=== PATIENT | female | born 1950 | race Caucasian/White ===

== ENCOUNTER → 2020-04-15 15:42 | Outpatient (CLI) | payer OTHER, SELFPAY ==
--- NOTE | ~2020-04-15 | XR_ITS ---
EXAMINATION: XR knee LT 3V DATE: 04/15/2020 16:10 INDICATION: Left knee pain. TECHNIQUE: 3 views of left knee were obtained. COMPARISON: None. FINDINGS: There is varus angulation at the knee. No fracture. There is moderate osteoarthritis of med ial compartment and mild osteoarthritis of lateral and patellofemoral compartments. No knee joint eff usion. IMPRESSION: 1. Moderate left knee osteoarthritis. Reviewed, dictated and finalized at location A.
== END ==
PROVIDERS: PCP Family Medicine; Visit Provider Family Medicine
DX: M25.562 Pain in left knee (principal); M17.12 Unilateral primary osteoarthritis, left knee
CPT/HCPCS: 73562

== ENCOUNTER 2020-06-05 11:00 | Outpatient (RCR) | payer OTHER, SELFPAY ==
--- NOTE | 2020-04-29 09:52 | PTOPEVAL ---
INITIAL PHYSICAL THERAPY EVALUATION and PLAN OF CARE Thank you for referring Yennifer Marcus to [facility].? Yennifer is scheduled to be seen for physical therapy? 2x/week for 3 weeks. Please review, sign, date and return this plan of care MARANDA. I agree with and certify that the following plan of care is medically necessary. Referring Physician Date Admitting Provider: Attending Provider: Farida Knight DO Referring Provider: *PT Outpatient Evaluation Start: 04/29/20 08:24 Freq: Status: Active Protocol: Document 04/29/20 08:24 ANGELINA (Rec: 04/29/20 09:51 ANGELINA [email or web address]) Therapy Assessment Status Assessment Status Assessment Status Evaluation Outpatient Past Medical History Past Medical History Source of Past Medical History Patient Neurological History Hx Neurological Disorders No Significant History Cardiovascular History Hx Cardiac Disorders No Significant History Respiratory History Hx Asthma Yes Hx Chronic Obstructive Pulmonary Disease Yes (COPD) Hx Emphysema Yes Hx Other Respiratory Disorders Yes: allergies Gastrointestinal History Hx Irritable Bowel Yes Genitourinary History Hx Genitourinary Disorders No Significant History Musculoskeletal History Hx Other Musculoskeletal Disorders Yes: R knee pain, L knee pain, L cervical radiculopathy Endocrine History Hx Endocrine Disorders No Significant History HEENT History Hx Cataracts Yes Hx Glaucoma Yes Hx Ear Surgery Yes: replaced stapes R ear Hx Other HEENT Disorders Yes: vertigo Evaluation Information Problem Diagnosis L knee pain Onset couple of months Subjective Information Yennifer reports having off/on L Query Text:As Reported By Patient/ knee pain that rest and Family ibuprofen took care of in the past. Then pain began to worsen. Did try Voltaren cream which really helped her pain. Did go off of the Voltaren cream and her pain came back. In past when she had lost 10 lbs and was walking ~ 1 mile - L knee felt better. Will take ibuprofen to help with sleeping - to try arthritis strength Tylenol. Worse first thing in the morning - better with warmer temperatures. Difficulty with L knee straightening in the
--- NOTE | 2020-05-15 12:50 | PCPTNOTE ---
Patient called & cancelled scheduled appointment this date due to illness.
--- NOTE | 2020-06-05 11:54 | PTOPEVAL ---
PHYSICAL THERAPY DISCHARGE SUMMARY Thank you for referring Yennifer Marcus to [facility].? Yennifer has been seen x 6 visits. Goals were met except for WOMAC pain score. Her HEP was reviewed this date and she was encouraged to continue with it on a regular basis. She stated that since her illness she hasn't been as faithful with her HEP and hasn't been doing as well as she was when she was regularly performing HEP. She is ready for discharge from PT to [facility]. I agree with and certify that the following plan of care is medically necessary. Referring Physician Date Admitting Provider: Attending Provider: Farida Knight DO Referring Provider: *PT Outpatient Evaluation Start: 04/29/20 08:24 Freq: Status: Active Protocol: Document 06/05/20 11:13 ANEGLINA (Rec: 06/05/20 11:54 ANGELINA [email or web address]) Therapy Assessment Status Assessment Status Assessment Status Discharge Evaluation Information Problem Subjective Information Yennifer states that after Query Text:As Reported By Patient/ becoming ill and getting busy Family with grandchildren - she hasn' t been doing her exercises like was doing before. Still doing pretty good with mobility - but not as good as before. Pain Assessment Timing of Pain Assessment Timing of Pain Assessment Assessment Pain Scale Pain Scale Used Numeric (1 - 10) Self Report Pain Assessment Left Knee(s) Reported Pain Level 0 Lowest Pain Intensity 0 Greatest Pain Intensity 3 Pain Score Pain Score 0: Self Report Lower Extremity Range of Motion Knee Range of Motion Left Knee Flexion Range of Motion - Active 125 Knee Extension Range of Motion - Active 0 Query Text: Lower Extremity Muscle Strength Testing Hip Strength Left Hip Flexion Strength 5 Normal Hip Extension Strength 5 Normal Hip Abduction Strength 4+ Good + Hip Medial Rotation Strength 5 Normal Hip Lateral Rotation Strength 5 Normal Gait Assessment Gait Pattern Assessment Other Gait Observations no obvious gait deviations observed Stair Climbing Assessment Stair Climbing Assessment Stair Climbing Assistive Devices Railings Number of Steps Climbed (Steps) 4 Number of Repetitions (Repetitions) 1 Technique Alternating Steps Stair Climbing Direction Both Up and Down Stair Climbing Comments no deviations observed PT Clinical Summary Clinical Summary Protocol: PTEVCODE PT Clinical Summary WOMAC - pain score - 50% physical function score - 29% total score - 36% Vera returned for re-eval th
== END 2020-06-22 15:14 | disposition home or self-care (01) ==
LOC: ANHHIPT 11:00
PROVIDERS: PCP Family Medicine; Visit Provider Family Medicine
DX: M25.562 Pain in left knee (principal)
CPT/HCPCS: 97110; 97161

== ENCOUNTER → 2021-06-07 12:10 | Outpatient (CLI) | payer OTHER, SELFPAY ==
--- NOTE | ~2021-06-07 | DEXA_ITS ---
Bone Density Report Name: ITA BEASLEY Age: 70 Sex: Female Ethnicity: White Date of : 1950 Indication: postmenopausal; screening for osteoporosis; height loss; asthma or emphysema; Referring Provider: Farida Knight Study: Bone densitometry was performed. Exam Date: June 07, 2021 Accession number: [id number] Bone Density: Region BMD T-score Z-score Classification AP Spine (L1-L4) 1.080 0.3 2.4 Normal Femoral Neck (Left) 0.727 -1.1 0.7 Osteopenia Total Hip (Left) 1.135 1.6 3.1 Normal Femoral Neck (Right) 0.732 -1.1 0.7 Osteopenia Total Hip (Right) 1.108 1.4 2.8 Normal Total Hip Mean 1.122 1.5 3.0 Normal World Health Organization criteria for BMD impression classify patients as: Normal (T-score at or above -1.0), Osteopenia (T-score between -1.0 and -2.5), or Osteoporosis (T-score at or below -2.5). 10-year Fracture Risk(1): Major Osteoporotic Fracture 8.1% Hip Fracture 0.8% Reported Risk Factors: [place] (), Neck BMD=0.732, BMI=37.4 (1) FRAX(R) Version 3.08. Fracture probability calculated for an untreated patient. Fracture probability may be lower if the patient has received treatment. Previous Exams: Region Exam Age BMD T-score BMD Change BMD Change Date g/cm2 vs Baseline vs Previous AP Spine(L1-L4) 06/07/2021 70 1.080 0.3 -0.019 0.011 09/09/2017 67 1.070 0.2 -0.029* 0.013 01/19/2007 56 1.056 0.1 -0.043* -0.043* 04/04/2005 54 1.099 0.5 Total Hip(Left) 06/07/2021 70 1.135 1.6 -0.058* -0.015 09/09/2017 67 1.151 1.7 -0.043* 0.116* 01/19/2007 56 1.035 0.8 -0.159* -0.159* 04/04/2005 54 1.193 2.1 Total Hip(Right) 06/07/2021 70 1.108 1.4 -0.070* -0.022 09/09/2017 67 1.129 1.5 -0.048* 0.040* 01/19/2007 56 1.089 1.2 -0.088* -0.088* 04/04/2005 54 1.177 1.9 *Denotes significance at 95% confidence level, LSC for AP Spine = 0.022 g/cm2, LSC for Total Hip = 0.027 g/cm2 Clinical Information Provided by Patient: Has used the following medications: Vitamin D Has the following medical conditions: Asthma or Emphysema Patient maximum height was 65.5 Menopause Age: 53 Drinks caffeinated beverages Onset of menses at age 15 Number of children 2 Impression: The patient has low bone mass, base
--- NOTE | ~2021-06-07 | MM_ITS ---
EXAMINATION: MM screening [facility] BI w melvin HISTORY: Screening mammogram TECHNIQUE: Craniocaudal and mediolateral oblique 3-D tomosynthesis images were obtained and synthetic 2-D images were generated. CAD analysis was submitted and interpreted. COMPARISON: 02/07/2019, 09/09/2017 BREAST PARENCHYMAL COMPOSITION: There are scattered areas of fibroglandular density. FINDINGS: There is no evidence of suspicious mass, calcification, or architectural distortion to sugg est malignancy in either breast. There has been no suspicious interval change. IMPRESSION: 1. No mammographic evidence of malignancy. 2. Recommend routine screening mammography in one year. BI-RADS Category 1: Negative Reviewed, dictated and finalized at location A. 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
== END ==
PROVIDERS: PCP Family Medicine; Visit Provider Family Medicine
DX: Z12.31 Encounter for screening mammogram for malignant neoplasm of breast (principal); Z78.0 Asymptomatic menopausal state; M85.852 Other specified disorders of bone density and structure, left thigh; M85.851 Other specified disorders of bone density and structure, right thigh
CPT/HCPCS: 77063; 77067; 77080

== ENCOUNTER 2021-06-16 11:33 | Outpatient (CLI) | payer OTHER, SELFPAY ==
--- NOTE | ~2021-06-16 | XR_ITS ---
XR chest 2V DATE: 06/16/2021 11:54 INDICATION: Shortness of breath. Recent history of bronchitis. TECHNIQUE: PA and lateral views COMPARISON: 01/21/2019 2 view chest FINDINGS: Normal heart size. There is mild aortic unfolding. No hilar or mediastinal enlargement. The lungs are clear of infiltrate or consolidation. No pleural effusion or pulmonary vascular congestion or pneumothorax. Diffuse idiopathic skeletal hyperostosis of the thoracic spine. IMPRESSION: No active cardiac pulmonary disease Reviewed, dictated and finalized at location B. MOLDER
== END 2021-06-16 11:34 | disposition home or self-care (01) ==
PROVIDERS: PCP Family Medicine; Visit Provider Nurse Practitioner Family
DX: R06.02 Shortness of breath (principal)
CPT/HCPCS: 71046

== ENCOUNTER 2021-09-22 11:08 | Outpatient (CLI) | payer OTHER, SELFPAY ==
[2021-09-22 11:54] LABS: Immunoglobulin G 562 mg/dL (700-1600)
[2021-09-26 02:03] LABS: Immunoglobulin G, Serum 591 mg/dL (600-1540); Immunoglobulin G1 259 mg/dL (382-929); Immunoglobulin G2 249 mg/dL (241-700); Immunoglobulin G3 51 mg/dL (22-178); Immunoglobulin G4 45.7 mg/dL (4.0-86.0)
== END 2021-09-22 11:09 | disposition home or self-care (01) ==
LOC: ANHLAB 11:09
PROVIDERS: PCP Family Medicine; Visit Provider Physician Assistant
DX: D83.9 Common variable immunodeficiency, unspecified (principal); J45.909 Unspecified asthma, uncomplicated
CPT/HCPCS: 36415; 82784; 82787

== ENCOUNTER 2021-11-25 13:48 | Outpatient (CLI) | payer OTHER, SELFPAY ==
--- NOTE | ~2021-11-25 | US_ITS ---
EXAMINATION: US carotid duplex BI DATE: 11/25/2021 14:35 INDICATION: Vertigo. Carotid atherosclerosis. TECHNIQUE: Grayscale, color Doppler, and pulsed Doppler images of the cervical carotid arteries were obtained. The degree of vessel stenosis is placed in one of the following categories: normal, <50%, 5 0-69%, >=70% but less than near-occlusion, near-occlusion, or total occlusion. Note that percent sten osis relative to normal distal artery lumen diameter is indirectly measured from velocity measurement s as described by René, et al. Radiology 2003; 229:340-346. COMPARISON: None. FINDINGS: RIGHT: The right common carotid artery (CCA) peak systolic velocity (PSV) is 117 cm/s. The right internal ca rotid artery (ICA) PSV is 76 cm/s. The right ICA end-diastolic velocity (EDV) is 23 cm/s. The right I CA/CCA PSV ratio is 0.7. Grayscale and color Doppler images yield an estimate of <50% diameter reduct ion from minimal plaque in the ICA. The external carotid artery (ECA) PSV is 93 cm/s. There is antegr aura flow in the right vertebral artery. LEFT: The left CCA PSV is 105 cm/s. The left ICA PSV is 67 cm/s. The left ICA EDV is 23 cm/s. The left ICA/ CCA PSV ratio is 0.6. Grayscale and color Doppler images yield an estimate of <50% diameter reduction from minimal plaque in the ICA. The ECA PSV is 104 cm/s. There is antegrade flow in the left vertebr al artery. IMPRESSION: 1. <50% stenosis from minimal plaque in the right internal carotid artery. 2. <50% stenosis from minimal plaque in the left internal carotid artery. Reviewed, dictated and finalized at location B.
== END 2021-11-25 13:49 | disposition home or self-care (01) ==
PROVIDERS: PCP Family Medicine; Visit Provider Family Medicine
DX: R13.10 Dysphagia, unspecified (principal); R42 Dizziness and giddiness; I65.23 Occlusion and stenosis of bilateral carotid arteries
CPT/HCPCS: 93880

== ENCOUNTER 2021-12-18 09:24 | Outpatient (CLI) | payer OTHER, SELFPAY ==
--- NOTE | ~2021-12-18 | MR_ITS ---
EXAMINATION: MR brain/brain stem wo con DATE: 12/18/2021 10:11 INDICATION: Dysphagia. Dizziness. Gait disturbance. TECHNIQUE: Magnetic resonance imaging (MRI) of the brain and brainstem was performed without intraven ous contrast. Sequences included sagittal and axial T1-weighted SE, axial diffusion-weighted FS SE, a xial T2*-weighted GRE, axial 3D SWAN, axial T2-weighted FLAIR, and axial T2-weighted FSE. Apparent di ffusion coefficient (ADC) maps were created. COMPARISON: Head CT dated 01/21/2019 FINDINGS: There are no areas of restricted diffusion to suggest acute infarction. No intracranial hemorrhage or abnormal intracranial mass lesion. There are scattered areas of nonspecific increased T2-weighted si gnal intensity in the cerebral white matter, predominantly involving the deep, periventricular and po ntine white matter. There are no intraparenchymal signal abnormalities seen on the other pulse sequen dana. The ventricles are symmetric and normal in size. There are no abnormal extra-axial fluid collect ions. Flow voids are seen in the cerebral arteries on the T2-weighted sequences consistent with their expected patency. Moderate mucosal thickening throughout the paranasal sinuses. Visualized orbits an d soft tissues are unremarkable. IMPRESSION: 1. No acute intracranial process. 2. Scattered common cerebral and pontine white matter T2 hyperintensity likely related to chronic sma ll vessel ischemic disease. 3. Diffuse sinus disease. Reviewed, dictated and finalized at location A. IMPRESSION: 1. No acute intracranial process. 2. Scattered common cerebral and pontine white matter T2 hyperintensity likely related to chronic small vessel ischemic disease. 3. Diffuse sinus disease.
== END 2021-12-18 09:25 | disposition home or self-care (01) ==
PROVIDERS: PCP Family Medicine; Visit Provider Family Medicine
DX: R13.10 Dysphagia, unspecified (principal); R42 Dizziness and giddiness; J32.8 Other chronic sinusitis
CPT/HCPCS: 70551

== ENCOUNTER 2022-02-20 11:11 | Emergency (ER) | payer OTHER, SELFPAY ==
--- NOTE | 2022-02-20 11:29 | ECG_ITS ---
Measurements Intervals [place] Rate: 62 P: 21 CT: 183 QRS: -5 QRSD: 92 T: 12 QT: 420 QTc: 427 Interpretive Statements SINUS RHYTHM NONSPECIFIC T-WAVE FLATTENING COMPARED TO ECG 01/21/2019 19:11:03 NO SIGNIFICANT CHANGES Electronically Signed On 02-22-2022 20:22:11 CDT by Brandi Tom M.D.
[2022-02-20 11:32] VITALS: BP 165/79; PULSE 68; RESP 18; TEMP 35.8; O2SAT 98
--- NOTE | 2022-02-20 11:53 | ED.GENADULT ---
HPI - General Adult General Chief complaint: Arrhythmia/Palpitations Stated complaint: HEART PALPITATIONS Source: patient Mode of arrival: ambulatory Limitations: no limitations History of Present Illness HPI narrative: Patient presents for evaluation of palpitations for the last 2 to 3 days. She contradicts herself with some of her history but I gather that this occurs at least once a day, with each episode lasting about an hour. She has times where she feels like her heart skips a beat . She is also experienced some sternal chest pressure, which she is experiencing at this time. She has some chronic shortness of breath but attributes this to interstitial lung disease and COPD. She also has an underlying history of depression, alpha antitrypsin deficiency, and alcohol abuse. She indicates that she binge drinks, with her last alcohol intake approximately 2 weeks ago. Denies any tobacco use. She has intermittent leg swelling. She had an echocardiogram in November 2015 that showed normal left ventricular systolic function with no wall motion abnormalities. There was mild enlargement of the left atrium and an aneurysmal atrial septum. She had a myocardial perfusion scan in February 2017 that showed negative EKG portion of stress test. There was a small anteroseptal defect consistent with attenuation artifact. Ejection fraction was 71%. She consumes 3 to 5 cups of coffee per day. Related Data Home Medications Medication Instructions Recorded Confirmed fluticasone propionate 50 1 spray intranasal DAILY 07/03/19 02/20/22 mcg/actuation nasal spray,suspension (Flonase Allergy Relief) travoprost 0.004 % eye drops 1 drop ophthalmic (eye) QPM 07/03/19 02/20/22 (Travatan Z) fluoxetine 40 mg capsule 80 mg PO DAILY 12/17/19 02/20/22 guaifenesin 600 mg tablet, 600 mg PO .prn 12/17/19 02/20/22 extended release 12 hr (Mucinex) psyllium seed (sugar) oral powder 1 tbsp PO DAILY 12/17/19 02/20/22 (Metamucil (sugar) oral powder) trazodone 50 mg tablet 50 mg PO QHS PRN Sleep 03/12/21 02/20/22 netarsudil 0.02 % eye drops 1 drp LEFT EYE QPM 11/23/21 02/20/22 (Rhopressa) Allergies Allergy/AdvReac Type Severity Reaction Status Date / Time brimonidine Allergy Unknown ITCHING Verified 02/20/22 11:18 AND BURNING IN EYES Sulfa (Sulfonamide Allergy Unknown unk Verified 02/20/22 11:18 Antibiotics) timolol Allergy Unknown ITCHING Verified 02/20/22 11:18 AND BURNING IN EYES bupropion [From Wellbutrin] Allergy Redness of Verified 02/20/22 11:18 Skin SULFA Allergy Unknown unk Uncoded 11/23/21 09:01 Review of Systems Review of Systems: CONSTITUTIONAL: Denies fever, chills, or sweats. EYES: Denies visual changes, redness, or discharge. ENT: Denies rhinorrhea, congestion, sore throat, or otalgia. CARDIOVASCULAR: Reports sternal chest pressure and palpitations. Reports bilateral lower extremity swelling which is chronic. RESPIRATORY: Reports chronic shortness of breath, unchanged. GASTROINTESTINAL: Denies abdominal pain, nausea, vomiting, or diarrhea. GENITOURINARY: Denies dysuria or hematuria. SKIN: Denies rash or itching. MUSCULOSKELETAL: Denies back pain, joint pain, or myalgia. NEUROLOGIC: Denies headache, numbness, dizziness, or weakness. PSYCHIATRIC: Denies anxiety or depression. [facility] Past Medical History Medical History Alcohol abuse COPD (chronic obstructive pulmonary disease) Depression Diverticulitis Essential hypertension Interstitial lung disease VICTOR M (obstructive sleep apnea) Surgical History Surgical History H/O oral surgery 1997 History of tubal ligation 1984 Status post myringotomy with tube placement of both ears 2005 Family History Family History Sibling Diabetes mellitus Family hi
[2022-02-20] MEDS: ASPIRIN 81 MG CHEWABLE TABLET 324 MG PO (11:58)
== END 2022-02-20 12:02 | disposition short-term general hospital (02) ==
PROVIDERS: Emergency Provider Nurse Practitioner; PCP Family Medicine
DX: R07.89 Other chest pain (principal); R00.2 Palpitations; J44.9 Chronic obstructive pulmonary disease, unspecified; I10 Essential (primary) hypertension; G47.33 Obstructive sleep apnea (adult) (pediatric); F32.A Depression, unspecified
CPT/HCPCS: 93005; 99213; A9270; G0463

== ENCOUNTER 2022-02-20 12:38 | Emergency (ER) | payer OTHER, SELFPAY ==
[2022-02-20] VITALS (19 sets, daily range): BP systolic 127–176; BP diastolic 50–91; PULSE 53–69; RESP 11–21; TEMP 36.7; O2SAT 95–99
--- NOTE | ~2022-02-20 | XR_ITS ---
EXAMINATION: XR chest 2V DATE: 02/20/2022 13:02 INDICATION: Heart palpitations TECHNIQUE: PA and lateral views of the chest are obtained. COMPARISON: 06/16/2021 FINDINGS: The lungs are free of acute opacities. No pleural effusion or pneumothorax. The cardiomedia stinal silhouette is normal. There is moderate thoracic spondylosis. IMPRESSION: 1. No acute cardiopulmonary abnormality. Reviewed, dictated and finalized at location A.
--- NOTE | 2022-02-20 12:39 | ECG_ITS ---
Measurements Intervals [place] Rate: 59 P: 9 OK: 177 QRS: -12 QRSD: 98 T: -1 QT: 448 QTc: 444 Interpretive Statements SINUS BRADYCARDIA WITH OCCASIONAL SUPRAVENTRICULAR PREMATURE COMPLEXES VOLTAGE CRITERIA FOR LVH [MEETS CRITERIA IN ONE OF: R(aVL), S(V1), R(V5), R(V5/V6)+S(V1)] COMPARED TO ECG 01/21/2019 19:11:03 VOLTAGE CRITERIA FOR LVH IS NOW SEEN Electronically Signed On 02-21-2022 16:47:39 CDT by Sulaiman Gleason M.D.
--- NOTE | 2022-02-20 13:24 | ED.GENADULT ---
HPI - General Adult General Chief complaint: Arrhythmia/Palpitations Stated complaint: palpitations Time Seen by Provider: 02/20/22 13:04 History of Present Illness HPI narrative: 71-year-old female presenting to the emergency department for evaluation of irregular heartbeat or palpitations. Patient states she has had this issue previously but received no prior diagnosis. Patient states approximately 2 years ago she did have a chemical stress test by Dr. Tom. Patient denies any prior history of [place]. Patient states for the last 2 to 3 days she has had increasing heart palpitations. Patient states it feels like she is having sensation of skipped beats. Patient states she does have history of lung disease and does have history of benign positional vertigo. Patient denies any changes in dizziness or shortness of breath. Patient denies any associated chest pain. Patient states that she does drink 3 to 5 cups of coffee daily and this is her normal baseline. Patient denies hypertension, denies high cholesterol and denies diabetes Related Data Home Medications Medication Instructions Recorded Confirmed fluticasone propionate 50 1 spray intranasal DAILY 07/03/19 02/20/22 mcg/actuation nasal spray,suspension (Flonase Allergy Relief) travoprost 0.004 % eye drops 1 drop ophthalmic (eye) QPM 07/03/19 02/20/22 (Travatan Z) fluoxetine 40 mg capsule 80 mg PO DAILY 12/17/19 02/20/22 guaifenesin 600 mg tablet, 600 mg PO .prn 12/17/19 02/20/22 extended release 12 hr (Mucinex) psyllium seed (sugar) oral powder 1 tbsp PO DAILY 12/17/19 02/20/22 (Metamucil (sugar) oral powder) trazodone 50 mg tablet 50 mg PO QHS PRN Sleep 03/12/21 02/20/22 netarsudil 0.02 % eye drops 1 drp LEFT EYE QPM 11/23/21 02/20/22 (Rhopressa) Allergies Allergy/AdvReac Type Severity Reaction Status Date / Time brimonidine Allergy Unknown ITCHING Verified 02/20/22 13:32 AND BURNING IN EYES Sulfa (Sulfonamide Allergy Unknown unk Verified 02/20/22 13:32 Antibiotics) timolol Allergy Unknown ITCHING Verified 02/20/22 13:32 AND BURNING IN EYES bupropion [From Wellbutrin] Allergy Redness of Verified 02/20/22 13:32 Skin SULFA Allergy Unknown unk Uncoded 11/23/21 09:01 Review of Systems Review of Systems: CONSTITUTIONAL: Denies fever, chills, or sweats. EYES: Denies visual changes, redness, or discharge. ENT: Denies rhinorrhea, congestion, sore throat, or otalgia. CARDIOVASCULAR: See HPI RESPIRATORY: Denies cough or dyspnea. GASTROINTESTINAL: Denies abdominal pain, nausea, vomiting, or diarrhea. GENITOURINARY: Denies dysuria or hematuria. SKIN: Denies rash or itching. MUSCULOSKELETAL: Denies back pain, joint pain, or myalgia. NEUROLOGIC: Denies headache, numbness, or weakness. [facility] Past Medical History Medical History Alcohol abuse COPD (chronic obstructive pulmonary disease) Depression Diverticulitis Essential hypertension Interstitial lung disease VICTOR M (obstructive sleep apnea) Surgical History Surgical History H/O oral surgery 1997 History of tubal ligation 1984 Status post myringotomy with tube placement of both ears 2004 Family History Family History Sibling Diabetes mellitus Family history of cardiovascular disease Father Family history of cardiovascular disease Family history of malignant neoplasm Family history of chronic obstructive pulmonary disease Grandparent Family history of glaucoma Social History Social History Smoking status: Never smoker Alcohol intake: current Alcohol use details: Binge drinks Substance use: never Gender identity (if verbalized by the patient): Female Sexual Orientation (if Verbalized by the Patie
[2022-02-20 14:38] LABS: Basophils Percent Auto 0.6 % (0.2-1.2); Eosinophils Absolute Auto 0.3 K/mm3 (0-0.3); Eosinophils Percent Auto 4.7 % (0-4.4); Hematocrit 39.9 % (37.0-47.0); Hemoglobin 13.2 g/dL (12.0-15.0); Immature Granulocyte Absolute 0.02 K/mm3 (0.00-0.031); Immature Granulocyte Percent A 0.3 % (0-0.5); Lymphocytes Absolute Auto 2.28 K/mm3 (0.9-3.2); Lymphocytes Percent Auto 31.6 % (18.3-44.2); Mean Corpuscular HGB Conc 33.1 g/dl (32-36); Mean Corpuscular Hemoglobin 29.1 pg (26-34); Mean Corpuscular Volume 87.9 fl (80-100); Mean Platelet Volume 10.2 fl (7.4-10.4); Monocytes Absolute Auto 0.5 K/mm3 (0.1-0.6); Monocytes Percent Auto 6.9 % (2.6-8.5); Neutrophils Percent Auto 55.9 % (45.5-73.1); Platelet Count Result 318 k/mm3 (150-375); Red Blood Count 4.54 M/mm3 (4.2-5.4); White Blood Count 7.2 K/mm3 (4.5-10.0)
[2022-02-20 14:49] LABS: Partial Thromboplastin Time 24.5 SECONDS (22.3-36.8); Prothrombin Time 12.3 Seconds (11.1-14.7)
[2022-02-20 14:52] LABS: Alanine Aminotransferase 23 U/L (6-35); Albumin Level 4.6 g/dL (3.5-5.1); Alkaline Phosphatase 129 U/L (38-126); Anion Gap 10 mmol/L (8-16); Aspartate Amino Transferase 30 U/L (14-36); Bilirubin,Total 0.5 mg/dL (0.2-1.3); Blood Urea Nitrogen 8 mg/dL (7-17); Calcium 8.9 mg/dL (8.4-10.2); Carbon Dioxide 26 mmol/L (22-30); Chloride 98 mmol/L (98-107); Estimated CRCL calculation 104 ml/min; Estimated Glomerular Filt Rate > 60; Glucose 111 mg/dL (65-110); Lipase 77 U/L (23-300); Magnesium 2.2 mg/dL (1.6-2.3); Potassium 3.7 mmol/L (3.4-5.0); Sodium 134 mmol/L (137-145)
[2022-02-20 15:04] LABS: Troponin I < 0.012 ng/mL (0.000-0.034)
== END 2022-02-20 16:15 | disposition home or self-care (01) ==
PROVIDERS: Emergency Medicine; Emergency Provider Emergency Medicine; PCP Family Medicine
DX: R00.2 Palpitations (principal); J44.9 Chronic obstructive pulmonary disease, unspecified; I10 Essential (primary) hypertension; J84.9 Interstitial pulmonary disease, unspecified; G47.33 Obstructive sleep apnea (adult) (pediatric); F32.A Depression, unspecified; R00.1 Bradycardia, unspecified
CPT/HCPCS: 36415; 71046; 80053; 83690; 83735; 84443; 84484; 85025; 85610; 85730; 93005; 99284; A9270

== ENCOUNTER 2022-02-25 10:42 | Outpatient (CLI) | payer OTHER, SELFPAY ==
--- NOTE | ~2022-02-25 | US_ITS ---
EXAMINATION: US venous doppler UE RT DATE: 02/25/2022 11:35 INDICATION: Other specified soft tissue disorders. TECHNIQUE: Grayscale ultrasound images without and with compression and Doppler ultrasound images of the right upper extremity veins were obtained. COMPARISON: None. FINDINGS: The visualized portions of the right internal jugular vein, subclavian vein, axillary vein, brachial veins, basilic vein, radial vein, and ulnar vein are patent. There is thrombus in the right cephalic vein. IMPRESSION: 1. No deep venous thrombosis. 2. Thrombus in the right cephalic vein, which is a superficial vein. Reviewed, dictated and finalized at location A.
== END 2022-02-25 10:43 | disposition home or self-care (01) ==
PROVIDERS: PCP Family Medicine; Visit Provider Family Medicine
DX: M79.89 Other specified soft tissue disorders (principal); I82.811 Embolism and thrombosis of superficial veins of right lower extremity
CPT/HCPCS: 93971

== ENCOUNTER 2022-04-25 12:30 | Outpatient (RCR) | payer OTHER, SELFPAY ==
--- NOTE | 2022-03-29 11:22 | PTOPEVAL1 ---
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 Her self assessment Dizziness Handicap Index score is 36/ 100. She reports increase dizziness with rolling over to the L in bed, looking up and bending forward. 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 Today, she is having a better day, and has improved over the past few weeks. She has had dizziness in the past. With the evaluation, she has multiple risk factors for vestibular issues: R ear surgery, multiple infections of sinus, respiratory and lungs, visual changes, hearing changes, neck pain with headaches, 2 falls in the past 6 months with position changes; She reports feeling better today, but did have some vague changes with [place] to L > R, supine to sit position change, occulomotor issues. And at the end of the evaluation session, reported feel fatigued and tired. 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 Plan of Care Interventions Neuro Re-education,Patient/Caregiver Education, Therapeutic Activities,Therapeutic Exercise PT Services Indicated Yes Treatment Frequency and 2x/wk for 4 weeks Duration These treatments will address the objective and functional deficits as defined above. The patient will be advanced safely and appropriately in order for the patient to progress towards his/her prior level of function. Additional exercises will be introduced and as well as a comprehensive home exercise program upon discharge, if needed, ?to ensure carryover of functional gains achieved in the clinic. This treatment plan has been reviewed and agreement upon by the patient.
--- NOTE | 2022-03-29 11:31 | PCPTNOTE ---
at the evaluation time, pt reported she will be going out of town for the rest of this week and will start treatment next week.
--- NOTE | 2022-04-13 08:58 | PCPTNOTE ---
Patient called & cancelled scheduled appointment this date due to still being out of town.
--- NOTE | 2022-04-29 08:46 | PCPTNOTE ---
Addendum entered by Meredith Roldan, PT 04/29/22 16:03: pt called and stated that she had called here and left a message to cancel today's appt; Original Note: pt did not show for today's reeval; called and left voice message.
--- NOTE | 2022-05-25 10:17 | PCPTNOTE ---
PHYSICAL THERAPY DISCHARGE 05-25-22 Attending Provider: Dr. Holland Rowe Patient:Yennifer Marcus Date of :1950 Yennifer has received 2 PT session for the diagnosis of dizziness. She then stopped attending. Therefore, she will be discharged at this time. The goals were not addressed. Thank you for referring this patient to [facility].
== END 2022-05-25 11:32 | disposition home or self-care (01) ==
LOC: ANHPT 12:30
PROVIDERS: PCP Family Medicine; Visit Provider Family Medicine
DX: R42 Dizziness and giddiness (principal)
CPT/HCPCS: 97110; 97162; 97530

== ENCOUNTER 2022-05-03 13:06 | Emergency (ER) | payer OTHER, SELFPAY ==
--- NOTE | ~2022-05-03 | US_ITS ---
EXAMINATION: US venous doppler UE RT DATE: 05/03/2022 14:13 INDICATION: Right upper extremity pain TECHNIQUE: Grayscale images without and with compression and Doppler images of the right upper extrem ity veins were obtained. COMPARISON: None. FINDINGS: The right internal jugular vein, subclavian vein, axillary vein, brachial vein, basilic vein, cephali c vein, radial vein, and ulnar vein are patent. IMPRESSION: 1. Patent right upper extremity veins. No evidence of venous thrombosis. Reviewed, dictated and finalized at location A. TATION OFFICER
[2022-05-03 13:28] VITALS: BP 181/67; PULSE 62; RESP 18; TEMP 36.9; O2SAT 97
--- NOTE | 2022-05-03 15:05 | ED.EXTPRO ---
HPI - Extremity Problem General Chief complaint: Extremity Problem,Nontraumatic Stated complaint: right arm pain, blood clot a few weeks ago Time Seen by Provider: 05/03/22 14:31 History of Present Illness HPI Narrative: Patient is a 71-year-old female presenting with concerns for a blood clot in her right arm. Patient states that several weeks ago she was on vacation and she lifted an extremely heavy piece of luggage. After this she developed pain in both of her arms. She has been treating with ibuprofen and Tylenol and states that her left arm pain has completely resolved but her right arm continues to be sore. States that she was diagnosed with a superficial blood clot several months ago and this pain feels very similar to that episode. She became concerned that she has a blood clot in this arm. She called her PCP today who recommended that she come to the ER for further evaluation. She denies any numbness, weakness, chest pain, shortness of breath, lightheadedness, abdominal pain, vomiting, diarrhea, leg swelling. Related Data Home Medications Medication Instructions Recorded Confirmed fluticasone propionate 50 1 spray intranasal DAILY 07/03/19 04/26/22 mcg/actuation nasal spray,suspension (Flonase Allergy Relief) travoprost 0.004 % eye drops 1 drop ophthalmic (eye) QPM 07/03/19 04/26/22 (Travatan Z) fluoxetine 40 mg capsule 80 mg PO DAILY 12/17/19 04/26/22 guaifenesin 600 mg tablet, 600 mg PO .prn 12/17/19 04/26/22 extended release 12 hr (Mucinex) psyllium seed (sugar) oral powder 1 tbsp PO DAILY 12/17/19 04/26/22 (Metamucil (sugar) oral powder) trazodone 50 mg tablet 50 mg PO QHS PRN Sleep 03/12/21 04/26/22 netarsudil 0.02 % eye drops 1 drp LEFT EYE QPM 11/23/21 04/26/22 (Rhopressa) Allergies Allergy/AdvReac Type Severity Reaction Status Date / Time brimonidine Allergy Unknown ITCHING Verified 05/03/22 13:43 AND BURNING IN EYES Sulfa (Sulfonamide Allergy Unknown unk Verified 05/03/22 13:43 Antibiotics) timolol Allergy Unknown ITCHING Verified 05/03/22 13:43 AND BURNING IN EYES bupropion [From Wellbutrin] Allergy Redness of Verified 05/03/22 13:43 Skin SULFA Allergy Unknown unk Uncoded 05/03/22 13:43 Review of Systems Review of Systems: All systems reviewed & are unremarkable except as noted in HPI and below PMFSH Past Medical History Medical History Alcohol abuse COPD (chronic obstructive pulmonary disease) Depression Diverticulitis Essential hypertension Interstitial lung disease VICTOR M (obstructive sleep apnea) Surgical History Surgical History H/O oral surgery 1997 History of tubal ligation 1984 Status post myringotomy with tube placement of both ears 2004 Family History Family History Sibling Diabetes mellitus Family history of cardiovascular disease Father Family history of cardiovascular disease Family history of malignant neoplasm Family history of chronic obstructive pulmonary disease Grandparent Family history of glaucoma Social History Social History Smoking status: Never smoker Alcohol intake: never Alcohol use details: Binge drinks Substance use: never Gender identity (if verbalized by the patient): Female Sexual Orientation (if Verbalized by the Patient): Straight or Heterosexual Spiritual care concerns: No Exam Narrative: GENERAL: Well-appearing, well-nourished, and in no acute distress. HEAD: Normocephalic, atraumatic. EYES: PERRLA and EOMI. ENT: Nares clear, no rhinorrhea or epistaxis. Mucous membranes moist. NECK: Supple. CHEST: Clear to auscultation. No respiratory distress. HEART: Regular rate and rhythm. No murmur heard. Normal peripheral pulses. ABDOMEN: Sof
== END 2022-05-03 15:42 | disposition home or self-care (01) ==
PROVIDERS: Emergency Provider Emergency Medicine; PCP Family Medicine
DX: M79.601 Pain in right arm (principal); J44.9 Chronic obstructive pulmonary disease, unspecified; F32.9 Major depressive disorder, single episode, unspecified; I10 Essential (primary) hypertension; G47.30 Sleep apnea, unspecified
CPT/HCPCS: 93971; 99284

== ENCOUNTER 2022-08-23 09:32 | Outpatient (CLI) | payer OTHER, SELFPAY ==
[2022-08-23 11:10] LABS: Influenza A QL RT-PCR Negative (Negative); Influenza B QL RT-PCR Negative (Negative); RSV RNA, RT-PCR Negative (Negative); SARS-CoV-2 RNA PCR Negative
== END 2022-08-23 09:33 | disposition home or self-care (01) ==
LOC: ANHLAB 09:34
PROVIDERS: PCP Family Medicine; Visit Provider Physician Assistant
DX: Z20.822 Contact with and (suspected) exposure to COVID-19 (principal)
CPT/HCPCS: 87637

== ENCOUNTER 2023-02-16 00:29 | Day surgery (SDC) | payer OTHER, SELFPAY ==
[2023-02-03 12:07] VITALS: BMI 35.9
[2023-02-16 10:35] VITALS: BP 148/79; PULSE 74; RESP 16; TEMP 36.1; O2SAT 96
[2023-02-16] MEDS: LACTATED RINGERS 1,000 ML 150 ML IV CONT (10:44)
--- NOTE | 2023-02-16 10:49 | WPDANESEPPF ---
Anes - Initial Pre Proc Eval Procedure: Operation Date: 02/16/23 11:15 Proposed Procedures p Screening Colonoscopy - Damon Coates MD Date/Time: 02/16/23 10:49 Surgeon: Damon Coates MD Pre Op Diagnosis: neoplasm screening Patient Data Age: 72 Gender: F Height: 1.65 m Weight: 94.9 kg Last Vital Signs Temp 36.1 C L 02/16/23 10:35 Pulse 74 02/16/23 10:35 Resp 16 02/16/23 10:35 BP 148/79 H 02/16/23 10:35 Pulse Ox 96 02/16/23 10:35 O2 Del Method Room Air 02/16/23 10:35 Allergies Allergy/AdvReac Type Severity Reaction Status Date / Time brimonidine Allergy Unknown ITCHING Verified 02/16/23 10:31 AND BURNING IN EYES Sulfa (Sulfonamide Allergy Unknown unk Verified 02/16/23 10:31 Antibiotics) timolol Allergy Unknown ITCHING Verified 02/16/23 10:31 AND BURNING IN EYES bupropion [From Wellbutrin] Allergy Redness of Verified 02/16/23 10:31 Skin SULFA Allergy Unknown unk Uncoded 02/16/23 10:31 Home Medications Medication Instructions Recorded Confirmed Type fluticasone propionate 50 1 spray intranasal DAILY 07/03/19 02/16/23 History mcg/actuation nasal spray,suspension (Flonase Allergy Relief) travoprost 0.004 % eye drops 1 drop ophthalmic (eye) QPM 07/03/19 02/16/23 History (Travatan Z) fluoxetine 40 mg capsule 80 mg PO DAILY 12/17/19 02/16/23 History inhalational spacing device (Space #1 ea 07/01/20 02/16/23 Rx Chamber Plus) trazodone 50 mg tablet 50 mg PO QHS PRN Sleep 03/12/21 02/16/23 History albuterol sulfate 2.5 mg/3 mL See Rx Instructions .Route 06/15/21 02/16/23 Rx (0.083 %) solution for nebulization .COMPLEX #300 mL netarsudil 0.02 % eye drops 1 drp LEFT EYE QPM 11/23/21 02/16/23 History (Rhopressa) ipratropium bromide 0.02 % 2.5 ml inhalation Q6H shortness of 05/24/22 02/16/23 Rx solution for inhalation breath or wheezing #360 mL guaifenesin 600 mg tablet, 1,200 mg PO .prn 08/23/22 02/16/23 History extended release 12 hr (Mucinex) fluticasone furoate 200 See Rx Instructions .Route 09/05/22 02/16/23 Rx mcg-vilanterol 25 mcg/dose .COMPLEX ##60 inhalation powder (Breo Ellipta) fluticasone propionate 110 1 puff inhalation Q12H #12 grams 11/07/22 02/16/23 Rx mcg/actuation HFA aerosol inhaler (Flovent HFA) montelukast 10 mg tablet See Rx Instructions .Route 11/07/22 02/16/23 Rx .COMPLEX #90 tabs hydroxyzine pamoate 25 mg capsule 25 mg PO QHS PRN Insomnia 11/15/22 02/16/23 History (Vistaril) albuterol sulfate 90 mcg/actuation See Rx Instructions .Route 12/13/22 02/16/23 Rx aerosol inhaler .COMPLEX #8.5 grams hydrocodone 5 mg-acetaminophen 325 1 tablet PO Q8H PRN pain #20 tabs 12/13/22 02/16/23 Rx mg tablet metronidazole 500 mg tablet 500 mg PO Q8H #30 tabs 12/13/22 02/16/23 Rx cholecalciferol (vitamin D3) 125 See Rx Instructions .Route 01/02/23 02/16/23 Rx mcg (5,000 unit) capsule .COMPLEX #90 caps lorazepam 1 mg tablet 1 mg PO BID PRN anxiety #15 tabs 02/13/23 02/16/23 Rx Patient hx anesthesia problems: none Family hx anesthesia problems: none Results Review: All pre-operative results and documents have been reviewed as part of the pre-operative evaluation. [facility] Past Medical History Medical History Alcohol abuse COPD (chronic obstructive pulmonary disease) Depression Diverticulitis Essential hypertension Interstitial lung disease VICTOR M (obstructive sleep apnea) Screening for breast cancer Screening for colon cancer Surgical History Surgical History H/O oral surgery 1997 History of tubal ligation 1983 Status post myringotomy with tube placement of both ears 2004 Family History Family History Sibling Diabetes mellitus Family history of cardiovascular disease Father Family history of cardiovascu
--- NOTE | 2023-02-16 11:19 | PM.HPGS ---
History of Present Illness History of Present Illness Consent: Risks, benefits, and alternatives have been discussed and questions answered. Patient agrees to proceed with procedure. Chief complaint: neoplasm screening Narrative: Yennifer Marcus is a 72 year old female Presents for screening colonoscopy. Patient has current weight appetite bowel movements are normal. She denies abdominal pain. She has had bleeding. Family history noncontributory. Previous colonoscopy 10 years ago was unremarkable. Review of Systems Review of Systems: Review of systems noncontributory. [facility] Past Medical History Medical History Alcohol abuse COPD (chronic obstructive pulmonary disease) Depression Diverticulitis Essential hypertension Interstitial lung disease VICTOR M (obstructive sleep apnea) Screening for breast cancer Screening for colon cancer Surgical History Surgical History H/O oral surgery 1998 History of tubal ligation 1984 Status post myringotomy with tube placement of both ears 2004 Family History Family History Sibling Diabetes mellitus Family history of cardiovascular disease Father Family history of cardiovascular disease Family history of malignant neoplasm Family history of chronic obstructive pulmonary disease Grandparent Family history of glaucoma Social History Social History Smoking status: Never smoker Alcohol intake: former Alcohol use details: Binge drinks Substance use: never Substance use type: does not use Lack of Transportation: No Lack of Food: Never True Current Housing: I Have Housing Concerned About Future Housing: No Difficulty Paying Gas/Electric Bills: No Difficulty Paying for Meds: No Currently Unemployed: No Difficulty w/ Childcare or Family Care: No Living arrangements: with family Occupation/Education: retired Gender identity (if verbalized by the patient): Female Sexual Orientation (if Verbalized by the Patient): Straight or Heterosexual Spiritual care concerns: No Meds Home Medications and Allergies Home Medications Medication Instructions Recorded Confirmed Type fluticasone propionate 50 1 spray intranasal DAILY 07/03/19 02/16/23 History mcg/actuation nasal spray,suspension (Flonase Allergy Relief) travoprost 0.004 % eye drops 1 drop ophthalmic (eye) QPM 07/03/19 02/16/23 History (Travatan Z) fluoxetine 40 mg capsule 80 mg PO DAILY 12/17/19 02/16/23 History inhalational spacing device (Space #1 ea 07/01/20 02/16/23 Rx Chamber Plus) trazodone 50 mg tablet 50 mg PO QHS PRN Sleep 03/12/21 02/16/23 History albuterol sulfate 2.5 mg/3 mL See Rx Instructions .Route 06/15/21 02/16/23 Rx (0.083 %) solution for nebulization .COMPLEX #300 mL netarsudil 0.02 % eye drops 1 drp LEFT EYE QPM 11/23/21 02/16/23 History (Rhopressa) ipratropium bromide 0.02 % 2.5 ml inhalation Q6H shortness of 05/24/22 02/16/23 Rx solution for inhalation breath or wheezing #360 mL guaifenesin 600 mg tablet, 1,200 mg PO .prn 08/23/22 02/16/23 History extended release 12 hr (Mucinex) fluticasone furoate 200 See Rx Instructions .Route 09/05/22 02/16/23 Rx mcg-vilanterol 25 mcg/dose .COMPLEX ##60 inhalation powder (Breo Ellipta) fluticasone propionate 110 1 puff inhalation Q12H #12 grams 11/07/22 02/16/23 Rx mcg/actuation HFA aerosol inhaler (Flovent HFA) montelukast 10 mg tablet See Rx Instructions .Route 11/07/22 02/16/23 Rx .COMPLEX #90 tabs hydroxyzine pamoate 25 mg capsule 25 mg PO QHS PRN Insomnia 11/15/22 02/16/23 History (Vistaril) albuterol sulfate 90 mcg/actuation See Rx Instructions .Route 12/13/22 02/16/23 Rx aerosol inhaler .COMPLEX #8.5 grams hydrocodone 5 mg-acetaminophen 325 1
[2023-02-16 11:41] VITALS: BP 119/48; PULSE 70; RESP 20; O2SAT 96
[2023-02-16 11:51] VITALS: BP 144/75; PULSE 68; RESP 20; O2SAT 99
[2023-02-16 12:01] VITALS: BP 147/80; PULSE 62; RESP 20; O2SAT 99
== END 2023-02-16 12:17 | disposition home or self-care (01) ==
PROVIDERS: PCP Family Medicine; Visit Provider Internal Medicine Gastroenterology
PROC: 0DJD8ZZ Inspection of Lower Intestinal Tract, Via Natural or Artificial Opening Endoscopic (ICD-10-PCS; CPT 45378; principal; 2023-02-16 11:15)
DX: Z12.11 Encounter for screening for malignant neoplasm of colon (principal); K57.30 Diverticulosis of large intestine without perforation or abscess without bleeding; K64.8 Other hemorrhoids; J44.9 Chronic obstructive pulmonary disease, unspecified; F32.A Depression, unspecified; I10 Essential (primary) hypertension; G47.33 Obstructive sleep apnea (adult) (pediatric); J84.9 Interstitial pulmonary disease, unspecified; Z80.9 Family history of malignant neoplasm, unspecified; Z79.51 Long term (current) use of inhaled steroids; Z79.891 Long term (current) use of opiate analgesic
CPT/HCPCS: G0121; J2704; J7120

== ENCOUNTER → 2023-05-05 11:34 | Outpatient (CLI) | payer OTHER, SELFPAY ==
--- NOTE | ~2023-05-05 | XR_ITS ---
Left foot Technique: AP, oblique, and lateral views were obtained. Clinical History: Pain Findings: There is a transverse, nondisplaced fracture of the base of fifth metatarsal. Plantar calca sascha spur present. Joint spaces are preserved without erosive or degenerative change. Soft tissues ar e unremarkable. Impression: Transverse, nondisplaced fracture of the base of the fifth metatarsal. Reviewed, dictated and finalized at location M. M SERVICE INSPECTOR Impression: Transverse, nondisplaced fracture of the base of the fifth metatarsal.
== END ==
PROVIDERS: PCP Physician Assistant Medical; Visit Provider Physician Assistant Medical
DX: S92.352A Displaced fracture of fifth metatarsal bone, left foot, initial encounter for closed fracture (principal); M79.672 Pain in left foot
CPT/HCPCS: 73630

== ENCOUNTER 2023-05-12 08:03 | Outpatient (CLI) | payer OTHER, SELFPAY ==
--- NOTE | ~2023-05-12 | CT_ITS ---
EXAMINATION: CT brain wo con DATE: 05/12/2023 09:15 INDICATION: Dizziness. Falls. TECHNIQUE: Computed tomography (CT) of the head was performed without intravenous contrast. The mA wa s adjusted according to patient size. Iterative reconstruction technique was employed. Exam dose: 60 5.33 mGy-cm total exam DLP. COMPARISON: 12/18/2021 MR brain 01/21/2019 CT brain FINDINGS: Vertebral, basilar and bilateral carotid siphon internal carotid artery calcifications. There is nonspecific diminished attenuation of the cerebral white matter, likely due to chronic small vessel ischemic changes. No intracranial mass lesion or hemorrhage or cerebrovascular accident, midline shift or mass effect i s detected. No subdural or epidural hematoma. Mild bilateral frontal, maxillary and sphenoid sinus mucoperiosteal thickening and prominent patchy o pacification of the ethmoid air cells bilaterally. The mastoid air cells are normally developed and aerated. No fracture or bone destruction of the cranial vault. IMPRESSION: No acute intracranial finding Cerebral atherosclerosis and chronic small vessel ischemic changes of the cerebral white matter Paranasal sinus disease Reviewed, dictated and finalized at Location A. Reviewed, dictated and finalized at location B. ODS EXAMINER IMPRESSION: No acute intracranial finding Cerebral atherosclerosis and chronic small vessel ischemic changes of the cereb ral white matter Paranasal sinus disease
--- NOTE | ~2023-05-12 | US_ITS ---
EXAMINATION: US carotid duplex BI DATE: 05/12/2023 09:05 INDICATION: Dizziness and giddiness. TECHNIQUE: Grayscale, color Doppler, and pulsed Doppler images of the cervical carotid arteries were obtained. The degree of vessel stenosis is placed in one of the following categories: normal, <50%, 5 0-69%, >=70% but less than near-occlusion, near-occlusion, or total occlusion. Note that percent sten osis relative to normal distal artery lumen diameter is indirectly measured from velocity measurement s as described by René, et al. Radiology 2003; 229:340-346. COMPARISON: Ultrasound 11/25/2021 FINDINGS: RIGHT: The right common carotid artery (CCA) peak systolic velocity (PSV) is 108 cm/s. The right internal ca rotid artery (ICA) PSV is 85 cm/s. The right ICA end-diastolic velocity (EDV) is 28 cm/s. The right I CA/CCA PSV ratio is 1.5. Grayscale and color Doppler images yield an estimate of <50% diameter reduct ion from plaque in the ICA. There is antegrade flow in the right vertebral artery. LEFT: The left CCA PSV is 98 cm/s. The left ICA PSV is 69 cm/s. The left ICA EDV is 23 cm/s. The left ICA/C CA PSV ratio is 1.0. Grayscale and color Doppler images yield an estimate of <50% diameter reduction from plaque in the ICA. There is antegrade flow in the left vertebral artery. IMPRESSION: 1. <50% stenosis in the right internal carotid artery. 2. <50% stenosis in the left internal carotid artery. Reviewed, dictated and finalized at location A. TRICAL CONTINUITY INSPECTOR
== END 2023-05-12 08:04 | disposition home or self-care (01) ==
PROVIDERS: PCP Family Medicine; Visit Provider Nurse Practitioner Family
DX: R42 Dizziness and giddiness (principal); R26.89 Other abnormalities of gait and mobility; S00.93XA Contusion of unspecified part of head, initial encounter; I65.23 Occlusion and stenosis of bilateral carotid arteries; I67.2 Cerebral atherosclerosis; J32.8 Other chronic sinusitis
CPT/HCPCS: 70450; 93005; 93880

== ENCOUNTER 2023-07-13 08:00 | Outpatient (RCR) | payer OTHER, SELFPAY ==
--- NOTE | 2023-05-12 09:11 | ECG_ITS ---
Measurements Intervals [place] Rate: 64 P: 65 OR: 183 QRS: -2 QRSD: 88 T: 11 QT: 398 QTc: 412 Interpretive Statements SINUS RHYTHM LOW QRS VOLTAGE IN PRECORDIAL LEADS CONSIDER INFERIOR INFARCT, AGE INDETERMINATE ABNORMAL ECG COMPARED TO ECG 02/20/2022 12:45:57 SINUS RHYTHM NOW PRESENT Electronically Signed On 05-12-2023 9:47:21 PASTRYCOOK by Juan Pablo Nowak D.O.
--- NOTE | 2023-05-16 15:33 | PTOPEVAL1 ---
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 Had therapy for her knees previously and did great with this but didn't continue to loose weight of her HEP. Started doing her exercises again but was having so much pain needed to get back into therapy Broke her left foot ~05/03/23, has a walking shoe. Fell related to dizziness and foolishness . Was doing laundry and twisted and fell getting caught up in dirty laundry. Pt was told has to bear weight for healing but also to rest frequently. Is using 2w-w out in public, but is not using it at home and gets tired quickly. Knees are painful with use. With rest and medication pain will reduce. Is manageable with Ibuprofen. Unable to squat, walking to fast, standing long periods (20 minutes). Difficulty doing disshes for 45 minutes. Stairs Main bedroom is on second floor so this is difficult and is always painful. Last two steps has no railing Reported Pain Level Pain Score 3: Self Report Assessment PT Clinical Summary Pt presents with diagnosis of bilat knee pain however she also her vertigo limiting her function she is seeing other treatment for and has recently fractured her left foot with a fall. Evaluation was modified today due to these limitations. Pt does demo gait abnormality however may be more directly related to left foot fracture than knees, but also demo's decresaed ROM bilat knees as well as pain with activity. Pt will benefit from physical therapy in order to address deficits and improve function with less pain. Plan of Care Interventions Electrical Stimulation,Gait Training,Manual Therapy,Neuro Re-education,Patient/Caregiver Educati,Therapeutic Activities,Therapeutic Exercise,Ultrasound PT Services Indicated Yes
--- NOTE | 2023-05-16 15:33 | OPREHPOC ---
Outpatient Therapy Plan of Care This is a Multidisciplinary Plan of Care that may contain components documented by all disciplines (PT, OT, and ST.) PT Problem 1 PT Problem #1 Knowledge Deficit PT Goal 1 Goal Pt will be independent in HEP Pt will verbalize understanding of diagnosis and prognosis Target Visit 8 PT Problem 2 PT Problem #2 Pain PT Goal 1 Goal Pt will report greatest pain level at 5/10s or less in bilat knees to improve ADLs Target Visit 8 PT Goal 2 Goal Pt will report resolution of pain to return to improve functional safe independence without pain Target Visit 15 PT Problem 3 PT Problem #3 Impaired Range of Motion PT Goal 1 Goal Pt will demo AROM left knee 0-130 for functional use Target Visit 8 PT Goal 2 Goal Will demo AROM bilat knee extension at 0 for functional gait pattern Target Visit 15
--- NOTE | 2023-06-15 11:29 | PTOPPROG ---
Assessment and note entered by Yesica Haney, PT Assessment Status Progress Diagnosis Pain in right knee, pain in left knee Onset 10 years off and on Subjective Information Pt reports feeling 40-50% improved Is still taking Ibuprofen for her knees 2x daily Cont to wear orthotic shoe on left secondary to fracture. Has podiatry referral. Does stairs 3-5 times daily. Left knee is still painful with the steps but thinks is related to the foot. Reports has been tired lately and doesn't know why , was overwhelmed with everything for a time. Overall foot feels better, but knees improved then stopped improving. Notes hasn't been doing her exercises at home in the last week or so coinciding with fatigue and increased knee pain. Is now able to do dishes. Assessment PT Clinical Summary Pt has been attending therapy consistently for bilateral knee pain. Pt reports has not been faithful with her exercises recently and notes increased fatigue and knee pain along with this. Evaluation does show improved gait with less use of AD, improved pain ratings, some improvement in ROM of left knee. 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 Plan of Care Interventions Electrical Stimulation,Gait Training,Manual Therapy,Neuro Re-education,Patient/Caregiver Educati,Therapeutic Activities,Therapeutic Exercise,Ultrasound PT Services Indicated Yes Treatment Frequency and 1-2x weekly x 4 weeks Duration These treatments will address the objective and functional deficits as defined above. The patient will be advanced safely and appropriately in order for the patient to progress towards his/her prior level of function. Additional exercises will be introduced and as well as a comprehensive home exercise program upon discharge, if needed, ?to ensure carryover of functional gains achieved in the clinic. This treatment plan has been reviewed and agreement upon by the patient.
--- NOTE | 2023-06-16 09:39 | PCPTNOTE ---
Clinic called patient and cancelled appointment on 06/08/23 due to staffing shortages.
--- NOTE | 2023-07-11 10:12 | PCPTNOTE ---
Patient called and stated she was running late because of the weather. Had difficulty getting into her car and getting to clinic. Arrived to clinic 40 minutes after scheduled start time thus unable to participate in session. Will continue plan of care.
--- NOTE | 2023-07-14 10:51 | PTOPDC ---
Assessment and note entered by Yesica Haney, PT Assessment Status Discharge Diagnosis Pain in right knee, pain in left knee Onset 10 years off and on Subjective Information Reports that has a general wobbliness but reports is related to walking boot and dizziness. States did also get down on the floor and then crawled to bathroom to get up using the toilet but was able to get up. Self-percieved improvement of knees - 80% states residual discomfort would work out Left knee is much better, right continues to be bothersome Reported Pain Level Pain Score 0: Self Report Assessment PT Clinical Summary Pt has attended therapy consistently for bilat knee pain. She has been limited in her therapy due to foot fracture and orthotic requirement for weight bearing as well as vertigo symptoms. She reports with her exercises her knees feel 80% improved overall. She also has been educated in floor recovery techniques to improve her functional mobility in her home. She has met multiple goes with only a slight lack of flexion preventing her from reach her chcf ROM goal, and her discomfort though greatly improved is still present. Pt's HEP has been updated, and patient has been educated on when to return to therapy if is necessary in the future. Thus patient is being discharged for max benefit being met.
== END 2023-07-19 09:16 | disposition home or self-care (01) ==
LOC: ANHHIPT 08:00
PROVIDERS: PCP Physician Assistant Medical; Visit Provider Nurse Practitioner Family
DX: M25.561 Pain in right knee (principal); M25.562 Pain in left knee; R42 Dizziness and giddiness
CPT/HCPCS: 97110; 97112; 97162; 97530; 97750

== ENCOUNTER 2023-10-27 12:31 | Emergency (ER) | payer OTHER, SELFPAY ==
--- NOTE | ~2023-10-27 | XR_ITS ---
XR shoulder RT min 2V 10/27/2023 13:42 Indication: Right shoulder pain after trauma Procedure: 4 views right shoulder Comparison: No prior studies for comparison. Findings: There is polyarticular osteoarthritis. There is a loose body inferior to the right glenohum eral joint. No fracture or traumatic malalignment. No soft tissue abnormality. No foreign body. Impression: 1: Moderate polyarticular osteoarthritis. Reviewed, dictated and finalized at location B. Impression: 1: Moderate polyarticular osteoarthritis.
--- NOTE | ~2023-10-27 | CT_ITS ---
EXAMINATION: CT brain wo con DATE: 10/27/2023 13:41 CDT INDICATION: Head trauma. TECHNIQUE: Computed tomography (CT) of the pelvis was performed without intravenous contrast. CT jonnathan nstructions of the hip were obtained in the axial, coronal, and sagittal planes. The dose-length prod uct was 605.33 mGy-cm. Automated exposure control and iterative reconstruction technique were employe d. COMPARISON: CT dated 05/12/2023 FINDINGS: Generalized atrophy. There are scattered mild periventricular and subcortical white matter changes, most likely related to small vessel ischemic disease (microangiopathy). Chronic left lacunar infarction. No acute infarction, hemorrhage, mass or mass effect. Mild mucosal thickening of the par anasal sinuses. Mastoids are pneumatized. No depressed skull fractures. IMPRESSION: 1. No acute intracranial abnormality. 2: Chronic left lacunar infarction. 3: Mild sinus disease. Reviewed, dictated and finalized at location B.
--- NOTE | ~2023-10-27 | CT_ITS ---
EXAMINATION: CT cervical spine wo con DATE: 10/27/2023 13:33 INDICATION: Neck pain after trauma TECHNIQUE: Computed tomography (CT) of the cervical spine was performed without intravenous contrast. The dose-length product was 495 mGy-cm. Automated exposure control and iterative reconstruction tech nique were employed. COMPARISON: None FINDINGS: Reversal of cervical lordosis. Dextroscoliosis. There is severe degenerative disc disease a nd endplate degenerative change at C3-4 through C6-7. There is multilevel uncinate and facet hypertro phy. Odontoid process is normal. No acute fracture or traumatic malalignment. Craniovertebral junctio n is normal. IMPRESSION: 1. No acute abnormality of the cervical spine. 2: Severe cervical spondylosis. Reviewed, dictated and finalized at location B.
--- NOTE | ~2023-10-27 | XR_ITS ---
XR ankle RT min 3V 10/27/2023 13:42 Indication: Right ankle pain after trauma Procedure: 4 views right ankle Comparison: No prior studies for comparison. Findings: Mildly displaced bimalleolar fracture. Large amount of lateral soft tissue swelling. There are prominent degenerative calcaneal enthesophytes. Talar dome is normal. No other fracture. Impression: 1: Mildly displaced bimalleolar fractures. Reviewed, dictated and finalized at location B. Impression: 1: Mildly displaced bimalleolar fractures.
[2023-10-27 12:34] VITALS: BP 139/66; PULSE 67; RESP 20; TEMP 36.1; O2SAT 98
[2023-10-27 13:15] LABS: Basophils Percent Auto 0.5 % (0.2-1.2); Eosinophils Absolute Auto 0.5 K/mm3 (0-0.3); Eosinophils Percent Auto 6.3 % (0-4.4); Hematocrit 41.7 % (37.0-47.0); Hemoglobin 13.9 g/dL (12.0-15.0); Immature Granulocyte Absolute 0.02 K/mm3 (0.00-0.031); Immature Granulocyte Percent A 0.3 % (0-0.5); Lymphocytes Absolute Auto 1.86 K/mm3 (0.9-3.2); Lymphocytes Percent Auto 23.8 % (18.3-44.2); Mean Corpuscular HGB Conc 33.3 g/dl (32-36); Mean Corpuscular Hemoglobin 29.1 pg (26-34); Mean Corpuscular Volume 87.4 fl (80-100); Monocytes Absolute Auto 0.5 K/mm3 (0.1-0.6); Monocytes Percent Auto 5.9 % (2.6-8.5); Neutrophils Absolute Auto 4.9 K/mm3 (1.3-6.7); Neutrophils Percent Auto 63.2 % (45.5-73.1); Platelet Count Result 331 k/mm3 (150-375); Red Blood Count 4.77 M/mm3 (4.2-5.4); Red Cell Distribution Width 13.4 % (11.5-14.5); White Blood Count 7.8 K/mm3 (4.5-10.0)
[2023-10-27 13:26] LABS: Ethanol < 10 mg/dL (<10)
[2023-10-27 13:29] LABS: Alanine Aminotransferase 19 U/L (6-35); Albumin Level 4.8 g/dL (3.5-5.1); Alkaline Phosphatase 106 U/L (38-126); Anion Gap 9 mmol/L (4-12); Aspartate Amino Transferase 27 U/L (14-36); Bilirubin,Total 0.6 mg/dL (0.2-1.3); Blood Urea Nitrogen 12 mg/dL (7-17); Calcium 9.7 mg/dL (8.4-10.2); Carbon Dioxide 26 mmol/L (22-30); Chloride 99 mmol/L (98-107); Estimated CRCL calculation 80 ml/min; Estimated Glomerular Filt Rate > 60; Glucose 100 mg/dL (65-110); Potassium 4.6 mmol/L (3.4-5.0); Sodium 134 mmol/L (137-145)
[2023-10-27 15:09] LABS: Appearance Urine Clear (Clear); Bilirubin Urine Negative (Negative); Blood Urine Negative (Negative); Color Urine Yellow (Yellow); Glucose Urine UA Negative (Negative); Ketones Urine Negative (Negative); Leukocyte Esterase Ur Negative LEU/UL (Negative); Nitrate Urine Negative (Negative); Protein Urine Negative (Negative); Specific Grav Ur 1.008 (1.001-1.035); Urobilinogen Urine 0.2 mg/dL (<2.0); pH Urine 7.5 (5.0-9.0)
[2023-10-27 15:11] LABS: Add Urine Microscopic? NO
[2023-10-27 15:24] LABS: Amphetamine Screen Urine Negative (Negative); Barbiturate Screen Urine Negative (Negative); Benzodiazepines Screen Urine Negative (Negative); Cannabinoid Screen Urine Negative (Negative); Cocaine Screen Urine Negative (Negative); Methadone Screen Urine Negative (Negative); Opiate Screen Urine Negative (Negative); Phencyclidine Screen Urine Negative (Negative)
[2023-10-27 15:44] LABS: Influenza A QL RT-PCR Negative (Negative); Influenza B QL RT-PCR Negative (Negative); RSV RNA, RT-PCR Negative (Negative); SARS-CoV-2 RNA PCR Negative (Negative)
--- NOTE | 2023-10-27 16:41 | ED.GENADULT ---
HPI - General Adult General Chief complaint: Fall <Sina Rucker MD - Last Filed: 10/27/23 18:19> Stated complaint: fall <Sina Rucker MD - Last Filed: 10/27/23 18:19> Time Seen by Provider: 10/27/23 12:48 <Sina Rucker MD - Last Filed: 10/27/23 18:19> History of Present Illness HPI narrative: Patient is a 73-year-old female who presents ER after a fall down her steps. She tripped and fell and a log rolled down the step hurting her right shoulder in her right ankle. Unable to bear weight due to pain. Has obvious swelling to the ankle. She is unsure if she struck her head but did not lose consciousness. She arrives in a cervical collar by EMS. At triage she reports the nurse that she has in fact been suicidal specifically yesterday. She had thoughts of cutting her own neck and also potentially taking her own pills however she does not think she has tough enough to cut herself with a knife and she does not think she has enough pills to harm herself either. She has no suicidal ideation today. She does report that she has some depression chronically. <Sina Rucker MD - Last Filed: 10/27/23 18:19> Related Data Home medications: Home Medications Medication Instructions Recorded Confirmed fluticasone propionate 50 1 spray intranasal DAILY 07/03/19 09/19/23 mcg/actuation nasal spray,suspension (Flonase Allergy Relief) travoprost 0.004 % eye drops 1 drop ophthalmic (eye) QPM 07/03/19 09/19/23 (Travatan Z) fluoxetine 40 mg capsule 80 mg PO DAILY 12/17/19 09/19/23 netarsudil 0.02 % eye drops 1 drp LEFT EYE QPM 11/23/21 09/19/23 (Rhopressa) guaifenesin 600 mg tablet, 1,200 mg PO .prn 08/23/22 09/19/23 extended release 12 hr (Mucinex) <Sina Rucker MD - Last Filed: 10/27/23 18:19> Allergies/adverse reactions: Allergies Allergy/AdvReac Type Severity Reaction Status Date / Time brimonidine Allergy Unknown ITCHING Verified 10/27/23 13:16 AND BURNING IN EYES Sulfa (Sulfonamide Allergy Unknown unk Verified 10/27/23 13:16 Antibiotics) timolol Allergy Unknown ITCHING Verified 10/27/23 13:16 AND BURNING IN EYES bupropion [From Wellbutrin] Allergy Redness of Verified 10/27/23 13:16 Skin SULFA Allergy Unknown unk Uncoded 10/27/23 13:16 <Sina Rucker MD - Last Filed: 10/27/23 18:19> Review of Systems Review of Systems: All systems reviewed & are unremarkable except as noted in HPI and below <Sian Rucker MD - Last Filed: 10/27/23 18:19> Constitutional: Constitutional: Reports no additional constitutional complaints <Sina Rucker MD - Last Filed: 10/27/23 18:19> ENT: Reports system reviewed and no additional complaints, except as documented <Sina Rucker MD - Last Filed: 10/27/23 18:19> Cardiovascular: Cardiovascular: Reports no additional cardiovascular complaints <Sina Rucker MD - Last Filed: 10/27/23 18:19> Respiratory: Respiratory: Reports no additional respiratory complaints <Sina Rucker MD - Last Filed: 10/27/23 18:19> Gastrointestinal: Gastrointestinal: Reports no additional gastrointestinal complaints <Sina Rucker MD - Last Filed: 10/27/23 18:19> Musculoskeletal: Musculoskeletal: Reports arthralgias and Reports joint swelling <Sina Rucker MD - Last Filed: 10/27/23 18:19> Integumentary/Breasts: Skin/Breast: Reports system reviewed and no additional complaints, except as docu <Sina Rucker MD - Last Filed: 10/27/23 18:19> Neurologic: Denies syncope, Denies headache(s), Denies focal weakness and Denies numbness <Sina Rucker MD - Last Filed: 10/27/23 18:19> Psychiatric: Psychiatric: Denies anxiety, Reports depression, Denies homicidal ideation and Reports suicidal ideation <Sina Rucker MD - Last Filed: 10/27/23 18:19> PMFSH Past Medical History Medical History: Medical History (Updated 10/28/23 @ 00:00 by Ba
[2023-10-27 18:06] VITALS: BP 124/70; PULSE 75; RESP 15; O2SAT 96
[2023-10-27 18:08] LABS: Glucose Point of Care 117 mg/dl (65-105)
[2023-10-27] MEDS: HYDROcodone/acetaminophen (*CRX) 5-325 MG TABLET 1 TAB PO (18:17)
--- NOTE | 2023-10-27 19:22 | PC.NURSE ---
Report given to Yadira MANLEY, all questions answered
== END 2023-10-27 20:58 | disposition home or self-care (01) ==
PROVIDERS: Emergency Provider Emergency Medicine; PCP Family Medicine
DX: S82.841A Displaced bimalleolar fracture of right lower leg, initial encounter for closed fracture (principal); Z11.52 Encounter for screening for COVID-19; I10 Essential (primary) hypertension; J44.9 Chronic obstructive pulmonary disease, unspecified; J84.9 Interstitial pulmonary disease, unspecified; G47.33 Obstructive sleep apnea (adult) (pediatric); F32.A Depression, unspecified; Z79.82 Long term (current) use of aspirin; M47.812 Spondylosis without myelopathy or radiculopathy, cervical region; M19.011 Primary osteoarthritis, right shoulder; J32.9 Chronic sinusitis, unspecified; W10.9XXA Fall (on) (from) unspecified stairs and steps, initial encounter
CPT/HCPCS: 29515; 36415; 70450; 72125; 73030; 73610; 80053; 80307; 81003; 82948; 84443; 85025; 87637; 99284; A9270